=== PATIENT | male | born 1980 | race Two or more races ===

== ENCOUNTER 2023-04-27 21:55 | Emergency (ER) | payer OTHER, SELFPAY ==
[2023-04-27 22:06] VITALS: BP 162/106; PULSE 102; RESP 20; TEMP 36.6; O2SAT 100; BMI 34.9
--- NOTE | 2023-04-27 22:53 | XR_ITS ---
The [address] [address] Patient Name: KIMBERLI DANIELS MRN: [id number] date: 1980 Sex: M Assigned Patient Location: ER Current Patient Location: ER Accession/Order Number: [id number] Exam Date: 04/27/2023 23:30 Report Date: 04/27/2023 23:54 At the request of: DEBORAH PALENCIA Procedure: XR forearm LT 2V EXAM: XR forearm LT 2V HISTORY: The patient is a 42-year-old male with injury COMPARISON: None. FINDINGS: No fractures or cortical discontinuities are seen throughout the length of the left radius and ulna. No radiopaque foreign bodies are seen. The wrist and elbow joints are grossly maintained. IMPRESSION: Negative left radius/ulna. Electronically authenticated by: MANA GRACE Date: 04/27/2023 23:54
[2023-04-27 23:40] VITALS: BP 172/100; PULSE 74; RESP 16; O2SAT 100
--- NOTE | 2023-04-27 23:44 | PC.NURSE ---
Patient hypertensive. states pain has increased following positioning from radiology scan. physician notified. patient states he does not want anything for pain at this time. states he will be driving back from [employer] home.
--- NOTE | 2023-04-28 00:05 | ED_ITS ---
HPI - Wound/Laceration General Chief Complaint: Wound/Laceration Time Seen by Provider: 04/28/23 00:50 Source: patient Mode of arrival: walk-in Limitations: no limitations History of Present Illness HPI narrative: Patient is to emergency department complaining of left forearm laceration. 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 He lost control of it and it hit his left forearm over the mid radial surface. He complains of numbness to the thumb. He has full range of motion. His immunizations are up-to-date. He does not take any blood thinners. pt denies any other injury. Related Data Allergies Allergy/AdvReac Type Severity Reaction Status Date / Time Penicillins Allergy Verified 04/27/23 22:27 Review of Systems ROS Narrative ROS: Unless otherwise stated in this report the patient's positive and negative responses for review of systems for constitutional, eyes, ENT, cardiovascular, respiratory, gastrointestinal, neurological, , musculoskeletal and integument systems and related systems to the presenting problem are either stated in the history of present illness or were not pertinent or were negative for the symptoms and/or complaints related to the presenting medical problem. Exam Narrative: Exam Narrative: Nurses notes and vital signs reviewed and patient is not hypoxic. General: Nontoxic, Well-appearing and in no apparent distress. Skin: Warm, dry, no pallor noted. No Rash Head: Normocephalic, atraumatic. Neck: Supple, non-tender. Eye: Pupils are equal, round and EOMI. No scleral icterus. Ears, Nose, Mouth, and Throat: TM clear, no posterior oropharynx erythema or nasal mucosal hypertrophy, uvula is mid-line Oral mucosa is moist Cardiovascular: Regular Rate and Rhythm without murmur, gallop or rub. Respiratory: No accessory muscle use or respiratory distress. Lungs are clear to auscultation, no wheezing, rales or rhonchi Chest Wall: no tenderness Back: No midline thoracic or lumbar vertebral tenderness. No CVA tenderness Musculoskeletal: 5 cm laceration to the left mid forearm over the radial surface. Linear with 1 cm gaping. There is no active bleeding. No arterial bleeding. Extensor tendon sheath is partially at the lacerated. Radial pulse +2, radial pulse +2, capillary refill is brisk. Patient is able to abduct and adduct the thumb, flex and extend with minimal pain but has full range of motion. Normal sensation to the thumb. Patient is able to oppose all digits with thumb.Normal sensation to the distal phalanx of the middle finger, and pinky. no calf or popliteal tenderness, no lower extremity edema/swelling GI: Abdomen is soft, non-distended. Normal bowel sounds. No masses appreciated. No tenderness to palpation. No rebound, guarding, or rigidity noted. Neurological: A&O x4. No cranial nerve dysfunction observed. No truncal ataxia. Moves all extremities. Sensation intact. Psychiatric: Cooperative and interactive. Normal mood and affect. Constitutional: Vital Signs, click to edit/add: Vital Signs - 24 hr 04/27/23 22:06 04/27/23 22:15 04/27/23 23:40 Temperature 97.9 F Pulse Rate 74 Pulse Rate [Monito r] 102 H Respiratory Rate 20 16 Blood Pressure 172/100 H Blood Pressure [Ri ght Arm] 162/106 H Pulse Oximetry 100 100 Oxygen Delivery Me thod Room Air Room Air Course Course Hospital Course: Laceration repair. The patient was identified by me. Procedure risks and benefits were discussed with patient and/or family. Area was prepped and draped in a sterile fashion. 4ml lidocaine 1% without epinephrine were injected. wound was inspected in full range of motion. Adequate anesthesia was obtained.5 sutures, interrupted, nylon 4.0 were used to obtain adequate closure . Antibiotic ointment was applied. Nonstick dressing was applied with pressure gauze and Donny wrap. Discussed with patient. Extensor tendon sheath has been transverse. The patient has full range of motion however and discussed with the patient the need to follow-up with orthopedic surgery and hand specialist. The patient will follow-up with occupational therapy tomorrow morning. He was given Motrin as he did not want anything else for pain. Patient is aware that he may need revision and surgery when evaluated by the specialist. No additional indication for emergent studies at this time. I answered all questions. Discussed discharge instructions including standard anticipatory guidance and what should prompt a return to the emergency department, including if they get worse are not getting better or develops any new or concerning symptoms. I've given them specific time frame in which to follow-up, and who to follow-up with. The patient demonstrates understanding. Patient is nontoxic and stable for discharge with outpatient follow-up. This note was created with the assistance of a speech recognition program. Although the intention is to generate documents that actually reflects the content of the visit, no guarantees can be provided that every mistake has been identified and corrected by editing. Vital Signs Vital signs: Vital Signs Temperature 97.9 F 04/27/23 22:06 Pulse Rate 102 H 04/27/23 22:06 Respiratory Rate 20 04/27/23 22:06 Blood Pressure 162/106 H 04/27/23 22:06 Pulse Oximetry 100 04/27/23 22:06 Oxygen Delivery Method Room Air 04/27/23 22:06 Temperature 97.9 F 04/27/23 22:06 Pulse Rate 74 04/27/23 23:40 Respiratory Rate 16 04/27/23 23:40 Blood Pressure 172/100 H 04/27/23 23:40 Pulse Oximetry 100 04/27/23 23:40 Oxygen Delivery Method Room Air 04/27/23 22:15 Discharge Plan Discharge Chief Complaint: Wound/Laceration Clinical Impression: Extensor tendon laceration, forearm, open wound Patient Disposition: Home, Self-Care Time of Disposition Decision: 00:53 Condition: Good Instructions: Laceration (ED) Stand Alone Forms: Portal Instructions Referrals: RITA DEL TORO [Physician] - As soon as possible Physician,Non-Staff, MD [Primary Care Provider] - 1 week Follow Up Appointments: occupational health in the morning
--- NOTE | 2023-04-28 01:23 | PC.NURSE ---
patient wound cleaned, dry, scant amount of blood around sutures, wound dressed with telfa and wrapped in gauze. instructed patient to keep wound dry and dressed for 1 day, if wound is no longer bleeding patient should keep wound open to air. instructed patient to use antibacteria ointment. patient verbalized understanding of instructions
[2023-04-28 01:28] VITALS: BP 172/100; PULSE 72; O2SAT 97
== END 2023-04-28 01:45 | disposition home or self-care (01) ==
PROVIDERS: Emergency Provider Emergency Medicine
DX: S56.322A Laceration of extensor or abductor muscles, fascia and tendons of left thumb at forearm level, initial encounter (principal); S51.802A Unspecified open wound of left forearm, initial encounter; W45.8XXA Other foreign body or object entering through skin, initial encounter
CPT/HCPCS: 12002; 73090; 99284